=== PATIENT | female | born 1975 | race Caucasian/White ===

== ENCOUNTER → 2016-09-01 | Outpatient (CLI) | payer BC ==
--- NOTE | 2016-09-01 10:37 | REP ---
Clinical: Pain. Technique: AP, lateral, bilateral oblique views of the right foot. Findings: Mild degenerative changes at the first metatarsophalangeal joint includes subchondral sclerosis marginal spurring at the metatarsal head and joint space narrowing. Remainder examination appears normal. Impression: Mild degenerative changes at the first MTP joint Signed by Luiz Freeman MD 09/01/2016 10:28 A
== END ==
LOC: M WUC 09:35
PROVIDERS: ATTEND Physician Assistant
DX: M19.071 Primary osteoarthritis, right ankle and foot (principal); M25.571 Pain in right ankle and joints of right foot

== ENCOUNTER 2017-02-02 12:37 | Emergency (ER) | payer OTHER ==
[~2017-02-02] VITALS: Ht 157.5 cm; Wt 62.9 kg
[2017-02-02] MEDS ORDERED: METF500T13 PO (13:06)
[2017-02-02] MEDS ORDERED: VITA100072 PO (13:11)
[2017-02-02] MEDS ORDERED: ASTRPOW4 PO (13:11)
[2017-02-02] MEDS ORDERED: LUTE20CA PO (13:11)
[2017-02-02] MEDS ORDERED: BIOT50004 PO (13:11)
[2017-02-02] MEDS ORDERED: XARE20TA PO (13:11)
[2017-02-02] MEDS ORDERED: VITA-199 PO (13:11)
[2017-02-02] MEDS ORDERED: LUTE25CA PO (13:11)
[2017-02-02] MEDS ORDERED: ASHW500C PO (13:11)
[2017-02-02] MEDS ORDERED: SPIR50TA2 PO (13:11)
[2017-02-02 13:44] LABS: BASO % 0.4 % (0.0-1.0); EOS # 0.1 10^3/uL (0.0-0.50); EOS % 0.8 % (0.0-3.0); IMMATURE GRANULOCYTE % 0.9 % (0-0); LYMPH # 2.3 10^3/uL (1.5-4.5); LYMPH % 24.9 % (24.0-44.0); MEAN CORPUSCULAR HEMOGLOBIN 33.1 pg (27.0-33.0); MEAN CORPUSCULAR HGB CONC 35.1 g/dl (32.0-36.5); MEAN CORPUSCULAR VOLUME 94.3 fl (80.0-96.0); MONO # 0.6 10^3/uL (0.0-0.8); MONO % 6.6 % (0.0-5.0); NEUTROPHILS % 66.4 % (36.0-66.0); PLATELET COUNT, AUTOMATED 261 10^3/uL (150-450); RED CELL DISTRIBUTION WIDTH 11.9 % (11.5-14.5)
[2017-02-02 14:04] LABS: ALBUMIN 4.1 GM/DL (3.2-5.2); ALBUMIN/GLOBULIN RATIO 1.21 (1.00-1.93); ALKALINE PHOSPHATASE 52 U/L (45-117); ALT/SGPT 17 U/L (12-78); ANION GAP 7 MEQ/L (8-16); AST/SGOT 10 U/L (15-37); BILIRUBIN,DIRECT 0.1 MG/DL (0.0-0.2); BILIRUBIN,TOTAL 0.5 MG/DL (0.2-1.0); BLOOD UREA NITROGEN 12 MG/DL (7-18); CALCIUM LEVEL 9.3 MG/DL (8.5-10.1); CARBON DIOXIDE LEVEL 28 MEQ/L (21-32); CHLORIDE LEVEL 103 MEQ/L (98-107); CREATININE FOR GFR 0.63 MG/DL (0.55-1.02); GLOMERULAR FILTRATION RATE > 60.0 (>58); GLUCOSE, FASTING 87 MG/DL (70-105); POTASSIUM SERUM 3.9 MEQ/L (3.5-5.1); SODIUM LEVEL 138 MEQ/L (136-145); TOTAL PROTEIN 7.5 GM/DL (6.4-8.2)
--- NOTE | 2017-02-02 14:26 | REP ---
ABDOMINAL SERIES: Supine and erect views of the abdomen demonstrate no free air and no compelling evidence for obstruction. No significantly dilated small bowel loops are seen. Metallic clips are seen in the upper abdomen as well as in the left pelvis. There appear to be a few phleboliths in the pelvis. An accompanying view of the chest demonstrates no acute infiltrate. Heart is normal in size and the mediastinal silhouette is unremarkable. IMPRESSION: Unremarkable abdominal series. No free air or obstruction. Signed by Maxwell Porter MD 02/02/2017 05:06 P
[2017-02-02] MEDS ORDERED: GASTROGRAFIN SOLUTION 30ML (Q9963) As Ordered ONE (14:27)
[2017-02-02] MEDS ORDERED: ONDANSETRON 4MG/2ML VIAL (J2405) IV ONE (14:30)
[2017-02-02] MEDS ORDERED: NS 1,000 ML IV ONE (14:30)
[2017-02-02] MEDS ORDERED: GASTROGRAFIN SOLUTION 30ML (Q9963) PO ONE ×2 (14:45→15:15)
[2017-02-02] MEDS ORDERED: ISOVUE-370 76% 100ML VIAL (Q9967) As Ordered ONE (16:12)
[2017-02-02 17:17] VITALS: BP 115/69
--- NOTE | 2017-02-02 17:26 | REP ---
CT ABDOMEN AND PELVIS WITH IV CONTRAST: TECHNIQUE: Axial contrast enhanced images from the lung bases to the pubic symphysis using 100 mL Isovue 370 intravenous contrast material with multiplanar reformations. Visualized lung bases demonstrate no infiltrate. Liver demonstrates no significant abnormality. Gallbladder is grossly unremarkable. Spleen, adrenals, pancreas and kidneys also appear unremarkable. There is no hydronephrosis. There is no abdominal aortic aneurysm. No adenopathy is seen. There is no free air or free fluid. No bowel thickening is seen. There is no evidence of appendicitis. Urinary bladder is grossly unremarkable. There is a cyst of the right ovary with an approximate diameter maximally of 4.7 cm. A 2 cm cystic structure is seen of the left ovary. No other abnormalities are seen. IMPRESSION: No free air or free fluid. No evidence of appendicitis. Right ovarian cyst measures 4.7 cm in diameter. Left ovarian cyst measures 2 cm in diameter. Signed by Maxwell Porter MD 02/03/2017 05:31 P
--- NOTE | 2017-02-03 07:06 | ECGEPIP ---
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
== END 2017-02-02 17:19 | disposition home or self-care (01) ==
LOC: M ED 12:37
DX: N83.202 Unspecified ovarian cyst, left side (principal); I10 Essential (primary) hypertension; Z79.84 Long term (current) use of oral hypoglycemic drugs; Z79.899 Other long term (current) drug therapy; Z88.5 Allergy status to narcotic agent; Z87.891 Personal history of nicotine dependence; Z98.890 Other specified postprocedural states
CPT/HCPCS: 36415; 74022; 74177; 80048; 80076; 81001; 82550; 82553; 83690; 85025; 93005; 96361; 96374; 99284; J2405; Q9963; Q9967

== ENCOUNTER → 2017-03-15 | Outpatient (REF) | payer OTHER ==
[~2017-03-15] MED LIST: ASHW500C PO; ASTRPOW4 PO; BIOT50004 PO; LUTE20CA PO; LUTE25CA PO; METF500T13 PO; SPIR50TA2 PO; VITA-199 PO; VITA100072 PO; XARE20TA PO
== END ==
LOC: M LAB REF 19:07
PROVIDERS: ATTEND Obstetrics & Gynecology
DX: Z12.4 Encounter for screening for malignant neoplasm of cervix (principal)

== ENCOUNTER → 2017-03-23 | Outpatient (CLI) | payer OTHER ==
--- NOTE | 2017-03-23 16:27 | REPMRS ---
Patient History Family history of prostate cancer in maternal grandfather and breast cancer in maternal aunt at age 28. Patient states her most recent mammo was done in [facility], [facility] area calling for. Digital Mammo Screening Bilat: March 23, 2017 - Exam #: [id number] Bilateral CC and MLO view(s) were taken. Technologist: Betty Petit Technologist FINDINGS: There are scattered fibroglandular densities. There has been no change in the appearance of the mammogram from the prior studies. There is a mild amount of residual fibroglandular tissue which is fairly symmetric. There is no interval development of dominant mass, architectural distortion, or clustered microcalcification suggestive of malignancy. Study was compared to 10/08/14 outside prior. No significant changes when compared with prior studies. ASSESSMENT: BI-RADS/ACR category 1 mammogram. Negative. Recommendation Routine screening mammogram in 1 year (for women over age 40). This mammogram was interpreted with the aid of an FDA-approved computer-aided dectection system. A. Negative x-ray reports should not delay biopsy if a dominant or clinically suspicious mass is present. B. Four to eight percent of cancers are not identified by mammography. C. Adenosis and dense breast may obscure an underlying neoplasm. Electronically Signed By: Jer Mariscal MD 03/23/17 [id number]
--- NOTE | 2017-03-24 08:14 | REP ---
PELVIC ULTRASOUND: CLINICAL: Ovarian cyst. TECHNIQUE: Transabdominal pelvic ultrasound followed by transvaginal examination for better evaluation of the endometrium and adnexa with color Doppler evaluation of the ovaries. COMPARISON: 02/12/2010. FINDINGS: Bladder is normal and measures 9.4 x 7.0 x 2.7 cm. The patient is noted to be status post hysterectomy with no abnormal fluid collection or mass lesion identified in the pelvis. The residual cervix demonstrates few subcentimeter nabothian cysts, unchanged from prior examination. The ovaries are normal in vascularity without evidence for torsion. The right ovary measures 4.7 x 3.8 x 3.9 cm and includes a 4.0 x 3.2 x 3.6 cm simple cyst. The left ovary measures 2.4 x 1.1 x 2.0 cm and is without cyst. Right RI equals 0.42; left RI equals 0.47. No pelvic fluid or adnexal mass lesion. IMPRESSION: 1. Evidence for prior hysterectomy with nabothian cysts again identified in the residual cervical tissue unchanged from prior examination. 2. Current examination includes a 4 cm right ovarian cyst. 3. No evidence for torsion, pelvic fluid or adnexal mass lesion. Signed by Luiz Freeman MD 03/25/2017 07:56 A
== END ==
LOC: M RAD 09:33
PROVIDERS: ATTEND Obstetrics & Gynecology
DX: N83.209 Unspecified ovarian cyst, unspecified side (principal)

== ENCOUNTER → 2017-04-02 | Outpatient (CLI) | payer OTHER | LOC: M SLEEP 20:00 | PROVIDERS: ATTEND Nurse Practitioner Adult Health | DX: G47.30 Sleep apnea, unspecified (principal) ==

== ENCOUNTER 2017-05-27 13:43 | Emergency (ER) | payer OTHER ==
[2017-05-27] MEDS: NS 1,000 ML IV ×2 (14:33→14:49)
[2017-05-27 14:44] LABS: BASO % 0.2 % (0.0-1.0); EOS % 0.2 % (0.0-3.0); HEMOGLOBIN 14.5 g/dl (12.0-16.0); IMMATURE GRANULOCYTE % 0.7 % (0-3.0); LYMPH # 2.2 10^3/uL (1.5-4.5); LYMPH % 17.8 % (24.0-44.0); MEAN CORPUSCULAR HEMOGLOBIN 32.5 pg (27.0-33.0); MEAN CORPUSCULAR HGB CONC 35.4 g/dl (32.0-36.5); MEAN CORPUSCULAR VOLUME 91.9 fl (80.0-96.0); MONO # 0.6 10^3/uL (0.0-0.8); NEUTROPHILS # 9.2 10^3/uL (1.8-7.7); NEUTROPHILS % 76.1 % (36.0-66.0); PLATELET COUNT, AUTOMATED 275 10^3/uL (150-450); RED BLOOD COUNT 4.46 10^6/uL (4.00-5.40); RED CELL DISTRIBUTION WIDTH 12.5 % (11.5-14.5); WHITE BLOOD COUNT 12.1 10^3/uL (4.0-10.0)
[2017-05-27] MEDS: HYDROmorphone HCL 1 MG/ML SYRINGE (J1170) IV ×2 (14:49→15:53)
[2017-05-27 15:02] LABS: ALBUMIN 4.1 GM/DL (3.2-5.2); ALBUMIN/GLOBULIN RATIO 1.11 (1.00-1.93); ALKALINE PHOSPHATASE 57 U/L (45-117); ALT/SGPT 14 U/L (12-78); ANION GAP 8 MEQ/L (8-16); AST/SGOT 14 U/L (7-37); BILIRUBIN,DIRECT < 0.1 MG/DL (0.0-0.2); BILIRUBIN,TOTAL 0.4 MG/DL (0.2-1.0); BLOOD UREA NITROGEN 19 MG/DL (7-18); CALCIUM LEVEL 9.1 MG/DL (8.5-10.1); CARBON DIOXIDE LEVEL 27 MEQ/L (21-32); CHLORIDE LEVEL 102 MEQ/L (98-107); CREATININE FOR GFR 0.73 MG/DL (0.55-1.30); GLOMERULAR FILTRATION RATE > 60.0 (>58); GLUCOSE, FASTING 120 MG/DL (70-100); LIPASE 143 U/L (73-393); SODIUM LEVEL 137 MEQ/L (136-145); TOTAL PROTEIN 7.8 GM/DL (6.4-8.2)
[2017-05-27 15:08] LABS: KETONE, URINE AUTO RFX 2+ mg/dL (NEGATIVE); MUCUS, URINE RFX SMALL (NEGATIVE); NITRITE, URINE AUTO RFX NEGATIVE (NEGATIVE); RBC, URINE AUTO RFX 1 /HPF (0-3); SPECIFIC GRAVITY UR AUTO RFX 1.032 (1.002-1.035); SQUAM EPITHELIAL CELL UR AURFX 4 /HPF (0-6); WBC, URINE AUTO RFX 2 /HPF (0-3)
[2017-05-27 15:53] LABS: LEUKOCYTE ESTERASE UR AUTO RFX TRACE (NEGATIVE)
[2017-05-27] MEDS: GASTROGRAFIN SOLUTION 30ML PO ×2 (16:31→16:50)
[2017-05-27] MEDS ORDERED: ISOVUE-370 76% 100ML VIAL (Q9967) As Ordered (17:25)
== END 2017-05-27 18:49 | disposition home or self-care (01) ==
LOC: M ED 13:43
DX: N83.201 Unspecified ovarian cyst, right side (principal); N80.9 Endometriosis, unspecified; Z87.42 Personal history of other diseases of the female genital tract; Z98.84 Bariatric surgery status; Z87.891 Personal history of nicotine dependence; Z88.5 Allergy status to narcotic agent; Z79.899 Other long term (current) drug therapy; Z79.84 Long term (current) use of oral hypoglycemic drugs; Z79.01 Long term (current) use of anticoagulants
CPT/HCPCS: J1170

== ENCOUNTER → 2017-05-30 | Outpatient (CLI) | payer OTHER ==
[2017-05-31 09:56] LABS: CARCINOEMBRYONIC ANTIGEN < 0.5 NG/ML (<2.5)
[2017-05-31 10:25] LABS: CA 125 10.9 U/ML (<30.2)
[2017-05-31 10:26] LABS: CA19-9 TUMOR MARKER,CARBOHYDRA 24.5 U/ML (<35.0)
== END ==
LOC: M WUC 12:18
DX: D39.8 Neoplasm of uncertain behavior of other specified female genital organs (principal); Z12.72 Encounter for screening for malignant neoplasm of vagina; R10.2 Pelvic and perineal pain

== ENCOUNTER → 2017-07-02 | Outpatient (CLI) | payer OTHER ==
[2017-07-02 17:32] LABS: ANION GAP 6 MEQ/L (8-16); BLOOD UREA NITROGEN 12 MG/DL (7-18); CARBON DIOXIDE LEVEL 30 MEQ/L (21-32); CHLORIDE LEVEL 105 MEQ/L (98-107); CHOLESTEROL LEVEL 176 MG/DL (<200); CHOLESTEROL RISK RATIO 2.514 (<5); CREATININE FOR GFR 0.67 MG/DL (0.55-1.30); FREE T4 0.93 NG/DL (0.76-1.46); GLOMERULAR FILTRATION RATE > 60.0 (>58); GLUCOSE, FASTING 88 MG/DL (70-100); HDL CHOLESTEROL 70 MG/DL (>40); LDL CHOLESTEROL 85.4 MG/DL (<100); NON-HDL-C 106 MG/DL; POTASSIUM SERUM 4.6 MEQ/L (3.5-5.1); SODIUM LEVEL 141 MEQ/L (136-145); TRIGLYCERIDES LEVEL 103 MG/DL (<150)
[2017-07-02 18:13] LABS: ESTIMATED AVERAGE GLUCOSE 94 MG/DL (60-110); HEMOGLOBIN A1c 4.9 %
[2017-07-04 10:37] LABS: TOTAL 25(OH) VITAMIN D 42.6 NG/ML (30.0-100.0)
== END ==
LOC: M WUC 10:16
DX: E28.2 Polycystic ovarian syndrome (principal); E55.9 Vitamin D deficiency, unspecified

== ENCOUNTER → 2017-11-02 | Outpatient (CLI) | payer OTHER | LOC: M WUC 16:15 | DX: M51.34 Other intervertebral disc degeneration, thoracic region (principal) | CPT/HCPCS: 72072 ==

== ENCOUNTER → 2018-01-25 | Outpatient (REF) | payer OTHER | LOC: M LAB REF 09:37 | DX: H02.815 Retained foreign body in left lower eyelid (principal) | CPT/HCPCS: 88300 ==

== ENCOUNTER → 2018-01-26 | Outpatient (CLI) | payer SELFPAY ==
[2018-01-27 13:55] LABS: HEPATITIS B SURFACE ANTIGEN NEGATIVE (NEGATIVE)
[2018-01-27 13:55] LABS: HEPATITIS B SURFACE ANTIBODY POSITIVE (POSITIVE); HIV 1&2 SCREEN CENTAUR NEGATIVE (NEGATIVE)
== END ==
LOC: M WUC 17:53
DX: Z77.21 Contact with and (suspected) exposure to potentially hazardous body fluids (principal)

== ENCOUNTER 2018-02-09 08:54 | Day surgery (SDC) | payer OTHER ==
[~2018-02-09 08:54] MED LIST changes: -ASHW500C PO; -ASTRPOW4 PO; -BIOT50004 PO; +LR 1,000 ML IV; -LUTE20CA PO; -LUTE25CA PO; -METF500T13 PO; -SPIR50TA2 PO; -VITA-199 PO; -VITA100072 PO; -XARE20TA PO
[2018-02-09 09:38] LABS: BEDSIDE GLUCOSE 94 MG/DL (70-105)
[2018-02-09] MEDS ORDERED: LIDOCAINE 2% INJ 100 MG/5 ML SDV (FOR ANES.) As Ordered (11:11)
[2018-02-09] MEDS ORDERED: fentaNYL 100 MCG/2 ML INJECTION (J3010) As Ordered ×3 (11:11→12:35)
[2018-02-09] MEDS ORDERED: PROPOFOL 200 MG/20 ML VIAL As Ordered (11:11)
[2018-02-09] MEDS ORDERED: MIDAZOLAM INJ 2 MG/2 ML VIAL (J2250) As Ordered (11:11)
[2018-02-09] MEDS ORDERED: dexameTHASONE 4 MG/ML 1ML VIAL (J1100) As Ordered (11:11)
[2018-02-09] MEDS ORDERED: ROCURONIUM BROMIDE 50 MG/5 ML VIAL As Ordered ×2 (11:11→11:52)
[2018-02-09] MEDS ORDERED: ePHEDrine SULFATE 25 MG/5 ML(5MG/ML) SYRINGE As Ordered (11:13)
[2018-02-09] MEDS: fentaNYL 100 MCG/2 ML INJECTION (J3010) IV ×4 (11:37→12:53)
[2018-02-09] MEDS ORDERED: KETOROLAC 60 MG/2 ML VIAL (J1885) As Ordered (11:55)
[2018-02-09] MEDS ORDERED: ONDANSETRON 4MG/2ML VIAL (J2405) As Ordered (11:55)
[2018-02-09] MEDS ORDERED: SUGAMMADEX SODIUM 500 MG/5 ML VIAL (BRIDION) As Ordered (11:57)
[2018-02-09] MEDS ORDERED: HYDROmorphone HCL 2 MG/ML 1ML VIAL (J1170) As Ordered (12:05)
[2018-02-09] MEDS ORDERED: PERCOCET 5MG/325MG TAB As Ordered (12:48)
[2018-02-09] MEDS: PERCOCET 5MG/325MG TAB PO (12:50)
[2018-02-09] MEDS ORDERED: LR 1,000 ML IV ×2 (13:00)
[2018-02-09] MEDS ORDERED: IBUPROFEN 600 MG TAB PO (13:00)
[2018-02-09] MEDS ORDERED: METOCLOPRAMIDE INJ 10MG/2ML VIAL (J2765) IV (13:00)
[2018-02-09] MEDS ORDERED: ONDANSETRON 4MG/2ML VIAL (J2405) IV (13:00)
== END 2018-02-09 13:52 | disposition home or self-care (01) ==
LOC: M SDC 08:54
DX: R10.2 Pelvic and perineal pain (principal); N73.6 Female pelvic peritoneal adhesions (postinfective); N83.12 Corpus luteum cyst of left ovary; N83.11 Corpus luteum cyst of right ovary; I10 Essential (primary) hypertension; E28.2 Polycystic ovarian syndrome; K21.9 Gastro-esophageal reflux disease without esophagitis; K58.8 Other irritable bowel syndrome; Z79.02 Long term (current) use of antithrombotics/antiplatelets; Z79.899 Other long term (current) drug therapy; Z88.8 Allergy status to other drugs, medicaments and biological substances
CPT/HCPCS: 58661

== ENCOUNTER → 2018-03-28 | Outpatient (CLI) | payer OTHER ==
[2018-03-28 20:51] LABS: TESTOSTERONE 17 NG/DL (14-76)
== END ==
LOC: M WUC 17:15
DX: E28.2 Polycystic ovarian syndrome (principal); E55.9 Vitamin D deficiency, unspecified
CPT/HCPCS: 84403

== ENCOUNTER → 2018-12-20 | Outpatient (CLI) | payer OTHER ==
[~2018-12-20] MED LIST changes: +ASHW500C PO; +ASTRPOW4 PO; +BIOT50004 PO; -LR 1,000 ML IV; +LUTE20CA PO; +LUTE25CA PO; +METF10004 PO; +METF500T13 PO; +PERC5TAB12 PO; +ROPI0.5T PO; +SPIR-10 PO; +SPIR100T3 PO; +SPIR50TA4 PO; +VITA-199 PO; +VITA100018 PO; +XARE20TA PO; +lutein PO
[2018-12-20 09:39] LABS: BLOOD UREA NITROGEN 16 MG/DL (7-18); CALCIUM LEVEL 9.7 MG/DL (8.5-10.1); CARBON DIOXIDE LEVEL 30 MEQ/L (21-32); CHLORIDE LEVEL 106 MEQ/L (98-107); CHOLESTEROL LEVEL 219 MG/DL (<200); CHOLESTEROL RISK RATIO 3.084 (<5); CREATININE FOR GFR 0.84 MG/DL (0.55-1.30); GLOMERULAR FILTRATION RATE > 60.0 (>58); GLUCOSE, FASTING 93 MG/DL (70-100); HDL CHOLESTEROL 71 MG/DL (>40); LDL CHOLESTEROL 130 MG/DL (<100); NON-HDL-C 148 MG/DL; POTASSIUM SERUM 4.8 MEQ/L (3.5-5.1); SODIUM LEVEL 140 MEQ/L (136-145); TRIGLYCERIDES LEVEL 91 MG/DL (<150)
[2018-12-20 13:34] LABS: TESTOSTERONE 28 NG/DL (14-76); TOTAL 25(OH) VITAMIN D 45.1 NG/ML (30.0-100.0)
== END ==
LOC: M WUC 08:04
PROVIDERS: ATTEND Nurse Practitioner Family
DX: E28.2 Polycystic ovarian syndrome (principal); E55.9 Vitamin D deficiency, unspecified

== ENCOUNTER → 2019-01-01 | Outpatient (CLI) | payer OTHER ==
[~2019-01-01] MED LIST changes: +OCUV1CAP4 PO; +TRAZ-252 PO
[2019-01-01 20:18] LABS: BASO # 0.1 10^3/uL (0.0-0.2); BASO % 0.7 % (0.0-1.0); EOS # 0.2 10^3/uL (0.0-0.5); EOS % 2.3 % (0.0-3.0); HEMOGLOBIN 12.8 g/dl (12.0-15.5); LYMPH # 3.1 10^3/uL (1.5-5.0); LYMPH % 45.5 % (24.0-44.0); MEAN CORPUSCULAR HEMOGLOBIN 29.8 pg (27.0-33.0); MEAN CORPUSCULAR HGB CONC 33.7 g/dl (32.0-36.5); MEAN CORPUSCULAR VOLUME 88.4 fl (80.0-96.0); MONO # 0.5 10^3/uL (0.0-0.8); MONO % 7.2 % (0.0-5.0); NEUTROPHILS % 44.2 % (36.0-66.0); PLATELET COUNT, AUTOMATED 253 10^3/uL (150-450); WHITE BLOOD COUNT 6.8 10^3/uL (4.0-10.0)
[2019-01-01 20:21] LABS: BLOOD UREA NITROGEN 17 MG/DL (7-18); CALCIUM LEVEL 9.5 MG/DL (8.5-10.1); CARBON DIOXIDE LEVEL 29 MEQ/L (21-32); CHLORIDE LEVEL 106 MEQ/L (98-107); CREATININE FOR GFR 0.84 MG/DL (0.55-1.30); GLOMERULAR FILTRATION RATE > 60.0 (>58); GLUCOSE, FASTING 87 MG/DL (70-100); POTASSIUM SERUM 4.8 MEQ/L (3.5-5.1); SODIUM LEVEL 141 MEQ/L (136-145)
== END ==
LOC: M WUC 17:14
PROVIDERS: ATTEND Podiatrist
DX: M20.21 Hallux rigidus, right foot (principal); M79.671 Pain in right foot

== ENCOUNTER 2019-01-12 08:22 | Day surgery (SDC) | payer OTHER ==
[~2019-01-12] VITALS: Ht 157.5 cm; Wt 64.8 kg
[~2019-01-12 08:22] MED LIST changes: +KETOROLAC 60 MG/2 ML VIAL (J1885) As Ordered ONE; +LIDOCAINE 2% INJ 100 MG/5 ML SDV (FOR ANES.) As Ordered ONE; +LR 1,000 ML IV ONE; +MIDAZOLAM INJ 2 MG/2 ML VIAL (J2250) As Ordered ONE; +ONDANSETRON 4MG/2ML VIAL (J2405) As Ordered ONE; +ceFAZolin SOD 2 GM in IV 1 EA IV ONE; +dexameTHASONE 4 MG/ML 1ML VIAL (J1100) As Ordered ONE; +fentaNYL 100 MCG/2 ML INJECTION (J3010) As Ordered ONE
[2019-01-12] MEDS ORDERED: LIDOCAINE 2% MDV 20 ML VIAL As Ordered ONE (10:46)
[2019-01-12] MEDS ORDERED: dexameTHASONE 4 MG/ML 1ML VIAL (J1100) As Ordered ONE (10:46)
[2019-01-12] MEDS ORDERED: NEOSPORIN GU IRRIG 20 ML VIAL As Ordered ONE (10:47)
[2019-01-12] MEDS ORDERED: BUPIVACAINE HCL 0.5% 30 ML VIAL As Ordered ONE (10:47)
[2019-01-12] MEDS ORDERED: BACITRACIN PWD 50,000 UNITS VIAL As Ordered ONE (10:47)
[2019-01-12] MEDS ORDERED: PERCOCET 5MG/325MG TAB PO PRN (13:00)
--- NOTE | 2019-01-12 13:03 | REP ---
Right foot three views postoperative study: Mineralization and joint spaces are normal. There is no fracture or dislocation. There is no orthopedic hardware. There is soft tissue edema over the dorsum. Impression: Soft tissue edema over the dorsum, otherwise, negative right foot. Electronically Signed by Maxwell Miramontes MD 01/12/2019 12:53 P
[2019-01-12 13:57] VITALS: BP 111/64
--- NOTE | 2019-01-12 22:34 | RO ---
DATE OF PROCEDURE: 01/12/2019 PREPROCEDURE DIAGNOSIS: Hallux limitus deformity right foot. POSTPROCEDURE DIAGNOSIS: Hallux limitus deformity right foot. PROCEDURE: Cheilectomy 1st metatarsophalangeal joint right foot. SURGEON: Stephan Patel DPM AUDIO VISUAL EQUIPMENT RENTAL CLERK:Eddie ANESTHESIA: Local monitored anesthesia care (MAC). IRRIGATION: Dilute bacitracin, neomycin and polymyxin B solution. HEMOSTASIS: Ankle pneumatic tourniquet 200 mmHg, 28 minutes, right foot. DESCRIPTION OF PROCEDURE: On 01/12/2019, this 43-year-old white female was taken from her hospital room to the operating room and placed on the operating table in supine position. Following the induction of IV sedation and local and regional anesthesia, the right lower extremity was prepped and draped in the usual aseptic manner. Attention was directed to the patient's right foot where there was noted to be a hallux limitus deformity. At this time, a 5 cm incision was placed over the 1st metatarsophalangeal joint medial to the extensor tendon. The incision was deepened through the subcutaneous tissues and all coursing venous tributaries were identified, underscored, clamped, cut, ligated and electrocoagulated as necessary. A linear capsulotomy was performed in the same plane as the original skin incision. The capsular and periosteal structures were then dissected free in one continuous layer dorsally, medially and lateral, thus creating a capsular periosteal type envelope. This allowed me to view the hypertrophied medial eminence of the 1st metatarsal, which was osteotomized from distal to proximal, through and through. Spurring was noted on the dorsal aspect of the 1st metatarsal, and the dorsal 25% of the cartilage and spur were removed with a sagittal saw and the dorsal 20% of the proximal phalanx from distal to proximal, through and through. There was a joint mouse noted on the dorsal aspect of the proximal phalanx. This was all excised. There were no linear defects or scoring noted on the proximal phalanx. There was a small area measuring approximately 2 mm x 4 mm on the dorsal lateral corner of the 1st metatarsal, which was then micro-fractured with a 1.1 mm K-wire through subchondral bone to promote fibrocartilaginous ingrowth. The wound was flushed with copious amounts of dilute bacitracin, neomycin and polymyxin B solution. Utilizing a metatarsal elevator, the sesamoids were released on the plantar surface and utilizing a Neida elevator, the phalanx was released along the inferior margin of the phalanx. Dorsal range of motion was now approximately 80 degrees dorsal. Fluid range of motion was noted. Utilizing a rongeur and file, the dorsal surface of the proximal phalanx and 1st metatarsal were rounded and smoothed. The wound was flushed with copious amounts of dilute bacitracin, neomycin and polymyxin B solution. Attention was directed towards closure where the capsular structures were coapted and maintained using #2-0 Monocryl in a simple interrupted-type fashion. Subcutaneous tissue was coapted and maintained utilizing #4-0 Monocryl in a simple interrupted type fashion. Skin incision was coapted and maintained using #5-0 Monocryl in a continuous subcuticular type fashion. This was additionally reinforced with Steri-Strips. Following the completion of the surgical procedure, approximately 4 mg of dexamethasone sodium phosphate was instilled proximal to the surgical site. Attention was directed towards bandaging where a sterile compressive bandage was applied consisting of Adaptic, 4 x 4's, 4 x 4 splints, Dilcia, Kerlix and Coban. Ankle pneumatic tourniquet was rapidly deflated and instantaneous capillary filling time was noted in digits 1-5 of the patient's right foot. The patient having apparently tolerated the surgical procedure well was taken from the operating room (OR) to the recovery room, further monitoring by the anesthesia department. Postoperative instructions given upon discharge. DELBERT
== END 2019-01-12 14:15 | disposition home or self-care (01) ==
LOC: M SDC 08:22
PROVIDERS: ATTEND Podiatrist
DX: M20.22 Hallux rigidus, left foot (principal); K58.8 Other irritable bowel syndrome; I10 Essential (primary) hypertension; Z79.899 Other long term (current) drug therapy; Z79.01 Long term (current) use of anticoagulants; Z98.84 Bariatric surgery status; Z88.5 Allergy status to narcotic agent; Z87.891 Personal history of nicotine dependence; F41.9 Anxiety disorder, unspecified; F32.9 Major depressive disorder, single episode, unspecified; G43.909 Migraine, unspecified, not intractable, without status migrainosus; Z86.718 Personal history of other venous thrombosis and embolism
CPT/HCPCS: 28289; 73630; 88300; 97116; J0690; J1100; J1885; J2250; J2405; J3010

== ENCOUNTER → 2019-04-24 | Outpatient (CLI) | payer OTHER ==
[~2019-04-24] MED LIST changes: -KETOROLAC 60 MG/2 ML VIAL (J1885) As Ordered ONE; -LIDOCAINE 2% INJ 100 MG/5 ML SDV (FOR ANES.) As Ordered ONE; -LR 1,000 ML IV ONE; -MIDAZOLAM INJ 2 MG/2 ML VIAL (J2250) As Ordered ONE; -ONDANSETRON 4MG/2ML VIAL (J2405) As Ordered ONE; -ceFAZolin SOD 2 GM in IV 1 EA IV ONE; -dexameTHASONE 4 MG/ML 1ML VIAL (J1100) As Ordered ONE; -fentaNYL 100 MCG/2 ML INJECTION (J3010) As Ordered ONE
[2019-04-24 09:42] LABS: BASO % 0.7 % (0.0-1.0); EOS # 0.1 10^3/uL (0.0-0.5); HEMATOCRIT 42.2 % (36.0-47.0); HEMOGLOBIN 13.5 g/dl (12.0-15.5); LYMPH # 2.4 10^3/uL (1.5-5.0); LYMPH % 40.5 % (24.0-44.0); MEAN CORPUSCULAR HEMOGLOBIN 28.8 pg (27.0-33.0); MONO # 0.5 10^3/uL (0.0-0.8); MONO % 7.7 % (0.0-5.0); NEUTROPHILS # 2.9 10^3/uL (1.5-8.5); NEUTROPHILS % 48.9 % (36.0-66.0); PLATELET COUNT, AUTOMATED 252 10^3/uL (150-450); RED BLOOD COUNT 4.69 10^6/uL (4.00-5.40)
[2019-04-24 11:01] LABS: ALBUMIN 3.8 GM/DL (3.2-5.2); ALT/SGPT 28 U/L (12-78); BILIRUBIN,TOTAL 0.6 MG/DL (0.2-1.0); BLOOD UREA NITROGEN 13 MG/DL (7-18); CALCIUM LEVEL 9.7 MG/DL (8.5-10.1); CARBON DIOXIDE LEVEL 26 MEQ/L (21-32); CHLORIDE LEVEL 105 MEQ/L (98-107); CHOLESTEROL LEVEL 218 MG/DL (<200); CHOLESTEROL RISK RATIO 2.945 (<5); CREATININE FOR GFR 0.78 MG/DL (0.55-1.30); GLOMERULAR FILTRATION RATE > 60.0 (>58); GLUCOSE, FASTING 85 MG/DL (70-100); HDL CHOLESTEROL 74 MG/DL (>40); LDL CHOLESTEROL 127 MG/DL (<100); NON-HDL-C 144 MG/DL; POTASSIUM SERUM 4.5 MEQ/L (3.5-5.1); SODIUM LEVEL 140 MEQ/L (136-145); TOTAL PROTEIN 7.2 GM/DL (6.4-8.2); TRIGLYCERIDES LEVEL 85 MG/DL (<150)
[2019-04-24 12:38] LABS: TOTAL 25(OH) VITAMIN D 53.7 NG/ML (30.0-100.0)
== END ==
LOC: M WUC 08:20
PROVIDERS: ATTEND Physician Assistant
DX: E78.5 Hyperlipidemia, unspecified (principal)

== ENCOUNTER 2019-06-20 08:45 | Emergency (ER) | payer OTHER ==
[~2019-06-20] VITALS: Ht 157.5 cm; Wt 67.5 kg
[~2019-06-20 08:45] MED LIST changes: -ROPI0.5T PO; +ROPI0.5T3 PO
[2019-06-20] MEDS ORDERED: ASHWAGANDHA PO (09:03)
[2019-06-20] MEDS ORDERED: BUSP5TA (09:03)
[2019-06-20 10:20] LABS: HEMATOCRIT 39.6 % (36.0-47.0); HEMOGLOBIN 13.4 g/dl (12.0-15.5); MEAN CORPUSCULAR HEMOGLOBIN 29.8 pg (27.0-33.0); MEAN CORPUSCULAR HGB CONC 33.8 g/dl (32.0-36.5); MEAN CORPUSCULAR VOLUME 88.2 fl (80.0-96.0); PLATELET COUNT, AUTOMATED 250 10^3/uL (150-450); RED BLOOD COUNT 4.49 10^6/uL (4.00-5.40); WHITE BLOOD COUNT 5.2 10^3/uL (4.0-10.0)
[2019-06-20 10:45] LABS: BLOOD UREA NITROGEN 12 MG/DL (7-18); CALCIUM LEVEL 9.4 MG/DL (8.5-10.1); CARBON DIOXIDE LEVEL 30 MEQ/L (21-32); CHLORIDE LEVEL 107 MEQ/L (98-107); CREATININE FOR GFR 0.73 MG/DL (0.55-1.30); GLOMERULAR FILTRATION RATE > 60.0 (>58); GLUCOSE, FASTING 91 MG/DL (70-100); SODIUM LEVEL 141 MEQ/L (136-145)
[2019-06-20] MEDS ORDERED: ISOVUE-370 76% 100ML VIAL (Q9967) As Ordered ONE (10:55)
[2019-06-20] MEDS ORDERED: PERCOCET 5MG/325MG TAB PO ONE (11:00)
[2019-06-20 11:25] LABS: INR 1.28; PROTHROMBIN TIME 15.7 SECONDS (11.8-14.0)
[2019-06-20 11:26] LABS: PARTIAL THROMBOPLASTIN TIME 33.3 SECONDS (25.0-38.4)
--- NOTE | 2019-06-20 11:36 | REP ---
CT abdomen and pelvis without IV or oral contrast: Renal stone protocol. History: Right flank pain. 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 Bowel gas pattern is normal. On axial CT images, the lung bases are clear. There is no evidence of pleural effusion or upper abdominal ascites. The liver and the spleen are normal in size, homogeneous in texture. The patient is status post gastric bypass surgery. No abnormalities noted in the gallbladder or the pancreas. Normal adrenal glands are seen. The kidneys appear morphologically intact. There is no evidence of hydronephrosis or intrarenal calculus. No ureteral stone is apparent. There are phleboliths in the pelvis bilaterally. No bladder calculus is seen. Normal appendix is noted in the right lower quadrant. Small and large bowel loops are unremarkable apart from the gastric bypass surgical findings. The uterus has been partially resected. No adnexal mass or free fluid is seen. Bone window settings show no bony destructive lesion. There is a unilateral right-sided pars defect at L5 without spondylolisthesis. Impression: Status post partial hysterectomy and gastric bypass surgery. No urinary tract calculus seen. Normal appendix noted. Otherwise no significant finding. Electronically Signed by Jasbir Maria MD 06/20/2019 02:31 P
[2019-06-20 11:38] LABS: ALBUMIN 3.9 GM/DL (3.2-5.2); BILIRUBIN,DIRECT 0.1 MG/DL (0.0-0.2); BILIRUBIN,TOTAL 0.4 MG/DL (0.2-1.0); TOTAL PROTEIN 6.9 GM/DL (6.4-8.2)
--- NOTE | 2019-06-20 11:54 | REP ---
LEFT LOWER EXTREMITY DUPLEX DOPPLER VENOUS ULTRASOUND: Real-time compression and duplex Doppler interrogation of the left lower extremity deep venous system is performed. Left common femoral superficial femoral and popliteal veins are fully compressible with transducer pressure and demonstrate normal spontaneous and phasic flow without evidence of deep venous thrombosis. There is minimal old linear clot seen in the common femoral and superficial femoral veins. IMPRESSION: No acute DVT. Minimal old linear thrombus, common femoral and superficial femoral veins. Electronically Signed by Maxwell Porter MD 06/20/2019 04:08 P
--- NOTE | 2019-06-20 12:43 | REP ---
CT pulmonary angiogram: With IV contrast. History: Right flank pain and pleuritic chest pain. History of DVT in the past x2. Rule out pulmonary embolus. Comparison studies: No comparison study. Contrast dose: 75 ML of Isovue [address] technique: Helical scanning is acquired and overlapping 1.5 mm and contiguous 3 mm axial images are reformatted. In addition, maximum intensity projection and multiplanar re-formation images are generated in sagittal and coronal imaging projections. CT pulmonary angiographic findings: There is good opacification of the pulmonary arterial tree. There is no evidence of vessel cutoff or filling defect to suggest pulmonary embolism. The thoracic aorta is normal in coarse caliber and homogeneous enhancement. There is no evidence of aortic dissection or aneurysm. No hilar or mediastinal mass or adenopathy is observed. No pleural or pericardial effusion is evident. The lung brambila are clear. No infiltrate is seen. The patient is status post gastric bypass procedure. No adrenal lesion is seen. The visualized upper abdominal structures are otherwise unremarkable. No bony abnormalities appreciated. Impression: Negative CT pulmonary angiogram. No CT evidence of pulmonary embolus. No active disease. Electronically Signed by Jasbir Maria MD 06/20/2019 12:34 P
[2019-06-20] MEDS ORDERED: CYCLOBENZAPRINE 5MG TABLET PO ONE (14:00)
[2019-06-20] MEDS ORDERED: CYCL5TAB PO (14:32)
[2019-06-20 14:35] VITALS: BP 111/61
--- NOTE | 2019-06-21 06:52 | ECGEPIP ---
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
== END 2019-06-20 14:45 | disposition home or self-care (01) ==
LOC: M ED 08:45
DX: I82.512 Chronic embolism and thrombosis of left femoral vein (principal); R10.9 Unspecified abdominal pain; R00.1 Bradycardia, unspecified; E16.2 Hypoglycemia, unspecified; Z98.84 Bariatric surgery status; K59.00 Constipation, unspecified; F33.9 Major depressive disorder, recurrent, unspecified; F41.9 Anxiety disorder, unspecified; Z90.710 Acquired absence of both cervix and uterus; Z88.5 Allergy status to narcotic agent; Z79.01 Long term (current) use of anticoagulants; Z79.899 Other long term (current) drug therapy
CPT/HCPCS: 36415; 71275; 74176; 80048; 80076; 81001; 83690; 84702; 85027; 85610; 85730; 93005; 93971; 99284; Q9967

== ENCOUNTER → 2019-06-21 | Outpatient (CLI) | payer OTHER ==
[~2019-06-21] MED LIST changes: +ASHWAGANDHA PO; +BUSP5TA; +CYCL5TAB PO
[2019-06-21 20:21] LABS: ALBUMIN 4.1 GM/DL (3.2-5.2); ALT/SGPT 29 U/L (12-78); BILIRUBIN,TOTAL 0.3 MG/DL (0.2-1.0); BLOOD UREA NITROGEN 13 MG/DL (7-18); CALCIUM LEVEL 9.2 MG/DL (8.5-10.1); CARBON DIOXIDE LEVEL 30 MEQ/L (21-32); CHLORIDE LEVEL 105 MEQ/L (98-107); CREATININE FOR GFR 0.77 MG/DL (0.55-1.30); GLOMERULAR FILTRATION RATE > 60.0 (>58); GLUCOSE, FASTING 80 MG/DL (70-100); POTASSIUM SERUM 4.7 MEQ/L (3.5-5.1); SODIUM LEVEL 139 MEQ/L (136-145); TOTAL PROTEIN 7.2 GM/DL (6.4-8.2)
[2019-06-21 20:29] LABS: TESTOSTERONE 18 NG/DL (14-76); TOTAL 25(OH) VITAMIN D 55.6 NG/ML (30.0-100.0)
== END ==
LOC: M WUC 17:19
PROVIDERS: ATTEND Nurse Practitioner Family
DX: E28.2 Polycystic ovarian syndrome (principal)

== ENCOUNTER → 2020-04-19 | Outpatient (CLI) | payer OTHER ==
[2020-04-19 18:52] LABS: FREE THYROXINE INDEX 2.3 % (1.3-4.8); T UPTAKE 32 % (30-39); THYROXINE (T4) 7.2 UG/DL (4.5-12.0)
[2020-04-21 10:51] LABS: VITAMIN B12 LEVEL > 2000 PG/ML
[2020-04-21 10:52] LABS: FOLATE 11.2 NG/ML
== END ==
LOC: M WUC 11:48
PROVIDERS: ATTEND Psychiatry & Neurology Neurology
DX: E07.9 Disorder of thyroid, unspecified (principal); E53.8 Deficiency of other specified B group vitamins

== ENCOUNTER → 2020-05-10 | Outpatient (CLI) | payer SELFPAY | LOC: M LABSMTC 09:21 | PROVIDERS: ATTEND Pediatrics | DX: Z20.822 Contact with and (suspected) exposure to COVID-19 (principal) ==

== ENCOUNTER → 2020-11-28 | Outpatient (CLI) | payer OTHER ==
--- NOTE | 2020-11-28 14:58 | REPMRS ---
Patient History The patient states she has not had a clinical breast exam in over a year. Patient is postmenopausal. Family history of breast cancer at age 28 in maternal aunt, colorectal cancer, breast cancer, and prostate cancer in maternal grandfather. Patient states no breast complaints today. Patient has signed MRS History Sheet. Digital Woman Screen Mammo: November 28, 2020 - Exam #: [id number] Bilateral CC and MLO view(s) were taken. Technologist: Mimi Rinaldi, Technologist Prior study comparison: March 23, 2017, bilateral digital mammo screening bilat, performed at [facility]. October 08, 2014, bilateral digital mammo screening bilat, performed at [facility]. August 31, 2013, bilateral digital mammo screening bilat, performed at [facility]. FINDINGS: The breast tissue is almost entirely fat. The Volpara volumetric breast density category is: A. There has been no change in the appearance of the mammogram from the prior studies. There is no interval development of dominant mass, architectural distortion, or grouped microcalcification typical of malignancy. 3-D tomosynthesis shows no additional findings. Assessment: BI-RADS/ACR category 1 mammogram. Negative Mammogram. Recommendation Routine screening mammogram of both breasts in 1 year (for women over age 40). This patient's [facility] Lifetime Breast Cancer RIsk is estimated at 10.5 %. This mammogram was interpreted with the aid of an FDA-approved computer-aided dectection system. Electronically Signed By: Giovanni Maria MD 11/28/20 [id number]
== END ==
LOC: M WHC 14:06
PROVIDERS: ATTEND Physician Assistant
DX: Z12.31 Encounter for screening mammogram for malignant neoplasm of breast (principal)

== ENCOUNTER → 2021-02-06 | Outpatient (CLI) | payer OTHER ==
[2021-02-06 16:08] LABS: BASO % 0.5 % (0.0-1.0); EOS # 0.1 10^3/uL (0.0-0.5); EOS % 0.8 % (0.0-3.0); HEMATOCRIT 40.3 % (36.0-47.0); HEMOGLOBIN 13.2 g/dl (12.0-15.5); LYMPH # 2.2 10^3/uL (1.5-5.0); LYMPH % 34.7 % (24.0-44.0); MEAN CORPUSCULAR HEMOGLOBIN 28.4 pg (27.0-33.0); MEAN CORPUSCULAR HGB CONC 32.8 g/dl (32.0-36.5); MEAN CORPUSCULAR VOLUME 86.7 fl (80.0-96.0); MONO # 0.4 10^3/uL (0.0-0.8); MONO % 6.7 % (2.0-8.0); NEUTROPHILS # 3.6 10^3/uL (1.5-8.5); PLATELET COUNT, AUTOMATED 264 10^3/uL (150-450); RED BLOOD COUNT 4.65 10^6/uL (4.00-5.40); WHITE BLOOD COUNT 6.3 10^3/uL (4.0-10.0)
[2021-02-06 16:42] LABS: ERYTHROCYTE SEDIMENTATION RATE 21 mm/hr (0-20)
[2021-02-06 16:48] LABS: ALBUMIN 4.2 GM/DL (3.2-5.2); ALT/SGPT 34 U/L (12-78); BILIRUBIN,TOTAL 0.5 MG/DL (0.2-1.0); BLOOD UREA NITROGEN 13 MG/DL (7-18); CALCIUM LEVEL 9.9 MG/DL (8.5-10.1); CARBON DIOXIDE LEVEL 27 MEQ/L (21-32); CHLORIDE LEVEL 109 MEQ/L (98-107); FERRITIN 6 NG/ML (8-252); FOLATE 10.6 NG/ML; FREE T4 0.98 NG/DL (0.76-1.46); GLOMERULAR FILTRATION RATE > 60.0 (>58); GLUCOSE, FASTING 83 MG/DL (70-100); IRON (FE) 61 UG/DL (50-170); PERCENT SATURATION 12.9 % (13.2-45.0); POTASSIUM SERUM 4.6 MEQ/L (3.5-5.1); RHEUMATOID FACTOR QUANT < 10.0 IU/ML (<15.0); SODIUM LEVEL 140 MEQ/L (136-145); T UPTAKE 34 % (30-39); THYROXINE (T4) 8.8 UG/DL (4.5-12.0); TOTAL 25(OH) VITAMIN D 55.1 NG/ML (30.0-100.0); TOTAL IRON BINDING CAPACITY 474 UG/DL (250-450); TOTAL PROTEIN 7.4 GM/DL (6.4-8.2); VITAMIN B12 LEVEL > 2000 PG/ML
[2021-02-06 16:53] LABS: MONO SCRN NEGATIVE (NEGATIVE)
[2021-02-13 23:07] LABS: ANTINUCLEAR ANTIBODIES DIRECT Negative (Negative); EBV VIRAL CAPSID AG IgM <36.0 U/mL (0.0-35.9); VITAMIN B1 LEVEL WHOLE BLOOD 162.8 nmol/L (66.5-200.0); VITAMIN B6,PYRIDOXAL PHOSPHATE 108.6 ug/L (2.0-32.8); VITAMIN E(ALPHA TOCOPHEROL) 11.8 mg/L (7.0-25.1); VITAMIN E(GAMMA TOCOPHEROL) 1.3 mg/L (0.5-5.5)
== END ==
LOC: M PLALAB 12:45
PROVIDERS: ATTEND Psychiatry & Neurology Neurology
DX: E07.9 Disorder of thyroid, unspecified (principal); E55.9 Vitamin D deficiency, unspecified; E53.8 Deficiency of other specified B group vitamins

== ENCOUNTER → 2021-02-16 | Outpatient (CLI) | payer OTHER ==
--- NOTE | 2021-02-16 10:42 | REP ---
INDICATION: SHORTNESS OF BREATH. COMPARISON: Multiple the latest frontal view the chest obtained 02/02/2017 TECHNIQUE: PA and lateral FINDINGS: The superior mediastinal structures are midline. The cardiac silhouette is unremarkable in size, shape, and position. The diaphragmatic surfaces of the lungs are regular, and the costophrenic angles are clear. The pulmonary brambila are clear. The imaged osseous structures are intact. IMPRESSION: There is no acute cardiopulmonary disease. <Electronically signed by Ken Carmona > 02/16/21 1038
== END ==
LOC: M PLAIMG 08:35
PROVIDERS: ATTEND Physician Assistant
DX: R06.02 Shortness of breath (principal)

== ENCOUNTER → 2021-09-02 | Outpatient (CLI) | payer OTHER | LOC: M WHC 06:39 | PROVIDERS: ATTEND Physician Assistant | DX: K83.8 Other specified diseases of biliary tract (principal); Z90.711 Acquired absence of uterus with remaining cervical stump; Z90.722 Acquired absence of ovaries, bilateral ==

== ENCOUNTER → 2022-02-10 | Outpatient (REF) | payer OTHER | LOC: M LAB REF 16:27 | PROVIDERS: ATTEND Physician Assistant | DX: J06.9 Acute upper respiratory infection, unspecified (principal) ==

== ENCOUNTER → 2022-06-29 | Outpatient (REF) | payer OTHER | LOC: M LAB REF 16:20 | PROVIDERS: ATTEND Physician Assistant | DX: J06.9 Acute upper respiratory infection, unspecified (principal); J02.9 Acute pharyngitis, unspecified ==